=== PATIENT | female | born 1985 | race Caucasian/White ===

== ENCOUNTER 2016-08-15 14:34 | Outpatient (CLI) | payer MEDICAID | END 2016-08-15 14:35 | disposition home or self-care (01) | DX: Z20.2 Contact with and (suspected) exposure to infections with a predominantly sexual mode of transmission (principal); R30.0 Dysuria ==

== ENCOUNTER 2019-11-17 18:36 | Emergency (ER) | payer MEDICAID ==
[2019-11-17 18:46] VITALS: BP 108/88
[2019-11-17] MEDS ORDERED: HYDROmorphone 1 MG/ML CARPUJECT IM STA (19:26)
[2019-11-17] MEDS ORDERED: KETOROLAC 30 MG/ML VIAL IM STA (19:26)
[2019-11-17] MEDS ORDERED: DEXAMETHASONE 10 MG/ML VIAL IM STA (19:26)
--- NOTE | 2019-11-17 19:28 | ED Physician Documentation ---
History of Present Illness - Stated complaint Stated Complaint: NECK PX - Chief complaint Chief Complaint: General - History obtained from History obtained from: Patient (34-year-old woman has had problems with her neck for the last month or 2. She was seen per her report at [facility] and diagnosed with cervical radiculopathy and multiple herniated disks. No clear follow-up plan but she was doing okay for a while with pain medications and steroids. 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 - Present Medications Home Medications: Ambulatory Orders Medication Instructions Recorded Confirmed Amox/Clav 875/125 [Augmentin] 1 each PO Q12H #20 tablet 11/29/15 HYDROcod/ACETAM 5/325 [Dexter 5/325] 1 - 2 ea PO Q6H PRN #15 tablet 11/29/15 Oxycodone HCl/Acetaminophen 1 - 2 each PO Q6H PRN #14 tablet 11/17/19 [Percocet 5-325 mg Tablet] predniSONE [Deltasone] 20 mg PO [id number] #21 tab 11/17/19 - Allergies Allergies/Adverse Reactions: Allergies Allergy/AdvReac Type Severity Reaction Status Date / Time No Known Drug Allergies Allergy Verified 11/17/19 18:40 - Social History Does the pt smoke?: Yes Smoking Status: Current every day smoker Does the pt drink ETOH?: Yes Does the pt have substance abuse?: No - Immunizations Immunizations are current?: Yes PD ED PE NORMAL - Vitals Vital signs reviewed: Yes - General General: Other (She is almost inconsolable in pain, laying curled up in a ball and histrionic) - Neck Neck: Other (Mild tenderness of the cervical spine, but range of motion is excellent. She also has muscular tenderness of the sternocleidomastoids in the upper traps.) - Extremities Extremities: Other (Significant weakness in the left hand which seems volitional, does not follow a dermatomal pattern.) - Neuro Neuro: Alert and oriented X 3, Normal speech Results - Vitals Vitals: Vital Signs - 24 hr 11/17/19 18:40 Temperature 36.5 C Heart Rate 67 Respiratory 14 Rate Blood Pressure 108/88 H O2 Saturation 99 Oxygen O2 Source Room air PD MEDICAL DECISION MAKING - ED course ED course: After the administration of some IM meds here she was feeling much better and declined further treatment in the ER. Departure - Departure Disposition: Home, Self Care Clinical Impression: Cervical radiculopathy Condition: Good Record reviewed to determine appropriate education?: Yes Instructions: ED Cervical Radiculopathy Prescriptions: Oxycodone HCl/Acetaminophen [Percocet 5-325 mg Tablet] 1 - 2 each PO Q6H PRN #14 tablet PRN Reason: pain predniSONE [Deltasone] 20 mg PO [id number] #21 tab Comments: Follow-up with the spinal surgeon at [facility], call them tomorrow to let them know you are having such difficulties. Return anytime for new or worsening symptoms. Do not drink or drive while taking prescription pain medications.
== END 2019-11-17 20:34 | disposition home or self-care (01) ==
LOC: ED 18:36
DX: M54.12 Radiculopathy, cervical region (principal); F17.200 Nicotine dependence, unspecified, uncomplicated
CPT/HCPCS: 96372; 99283; J1170

== ENCOUNTER 2020-12-21 13:24 | Outpatient (CLI) | payer MEDICAID ==
--- NOTE | 2020-12-21 15:06 | XRAY Report ---
PROCEDURE: Cervical Spine 2 View INDICATIONS: CERVICALGIA TECHNIQUE: 3 view(s) of the cervical spine were acquired. COMPARISON: None. FINDINGS: Bones: No fractures or dislocations to the C7-T1 level. The lateral masses of C1 appear intact on t he odontoid view. No suspicious bony lesions. There is reversal cervical curvature with apex at C5- 6. Mild disc space narrowing is present at C5-6 with trace retrolisthesis of C5 on C6. Minimal scatte red uncovertebral hypertrophy is present. Soft tissues: No prevertebral soft tissue swelling. IMPRESSION: Reversal cervical curvature with C5-6 disc space narrowing. Reviewed by: Maria De Jesus Salinas MD on 12/21/2020 3:04 PM PDT Approved by: Maria De Jesus Salinas MD on 12/21/2020 3:04 PM PDT Station ID: [id number]
--- NOTE | 2020-12-21 15:06 | XRAY Report ---
PROCEDURE: Thoracic Spine 2 View INDICATIONS: SEGMENTAL AND SOMATIC DYSFUNCTION OF T-REGION TECHNIQUE: 3 views of the thoracic spine were acquired. COMPARISON: None. FINDINGS: Bones: No fractures or dislocations. No suspicious bony lesions. 12 pairs of ribs are noted, and a ppear intact where visualized. Mild scattered disc space narrowing. Minimal nonbridging anterior oste ophytes are noted. Soft tissues: No paravertebral stripe thickening. IMPRESSION: Mild scattered multilevel disc space narrowing. Reviewed by: Maria De Jesus Salinas MD on 12/21/2020 3:05 PM PDT Approved by: Maria De Jesus Salinas MD on 12/21/2020 3:05 PM PDT Station ID: [id number]
--- NOTE | 2020-12-21 15:07 | XRAY Report ---
PROCEDURE: Lumbar Spine 2 View INDICATIONS: LOW BACK PAIN TECHNIQUE: 2 views of the lumbar spine were acquired. COMPARISON: None. FINDINGS: Bones: 5 [id number] vertebrae are present. There is normal bony alignment. No vertebral body compression fractures. No suspicious bony lesions. Minimal foraminal narrowing at L5-S1. Soft tissues: Overlying bowel gas pattern is normal. No suspicious soft tissue calcifications. IMPRESSION: Minimal early degenerative change as above. Reviewed by: Maria De Jesus Salinas MD on 12/21/2020 3:05 PM PDT Approved by: Maria De Jesus Salinas MD on 12/21/2020 3:05 PM PDT Station ID: [id number]
== END 2020-12-21 13:25 | disposition home or self-care (01) ==
LOC: DI 13:24
PROVIDERS: ATTEND Chiropractor
DX: M54.6 Pain in thoracic spine (principal); M54.2 Cervicalgia; M54.5 Low back pain; M99.01 Segmental and somatic dysfunction of cervical region; M99.08 Segmental and somatic dysfunction of rib cage; M99.02 Segmental and somatic dysfunction of thoracic region; M48.02 Spinal stenosis, cervical region; M48.04 Spinal stenosis, thoracic region; M47.816 Spondylosis without myelopathy or radiculopathy, lumbar region